=== PATIENT | female | born 1955 | race Caucasian/White ===

== ENCOUNTER → 2022-05-18 12:07 | Outpatient (CLI) | payer MEDICARE, OTHER, SELFPAY ==
--- NOTE | 2022-05-18 | DI.MRI.S_ITS ---
PROCEDURE: MR LUMBAR SPINE WO CON INDICATIONS: RADICULOPATHY, LUMBAR REGION TECHNIQUE: Noncontrast sagittal T1 spin echo and T2 fast echo, sagittal STIR, axial T1 and T2 fast spin echo through the lumbar spine. Axial and oblique coronal T1 spin echo and STIR through the sacrum. In cases with scoliosis, additional coronal T2 fast spin echo may be performed. COMPARISON: None. FINDINGS: Image quality: Excellent. Alignment and Curvature: There is normal bony alignment. Bone Marrow: Marrow is of normal overall signal. No acute vertebral body compression fractures. No sacral fractures. Spinal Cord: Conus medullaris terminates at the L1 level. Visualized cord demonstrates normal signal and size. Paraspinous Soft Tissues: No paravertebral masses. T11-12: Circumferential disc bulge results in [id number]-[id number] central stenosis. No foraminal stenosis. T12-L1: Disc space narrowing noted. No central or foraminal stenosis L1-L2: Disc space narrowing with circumferential disc bulge present. No central or foraminal stenosis L2-L3: Disc space narrowing with circumferential disc bulge results in mild central stenosis. Mild bilateral foraminal stenosis L3-L4: Disc height is maintained. Ligamentum flavum laxity combines with mild disc bulge to result in mild central stenosis. Moderate left and no right foraminal stenosis. L4-L5: Disc space is maintained. Hypertrophic facet joints results in mild central stenosis. No foraminal stenosis L5-S1: Disc height loss present with circumferential disc bulge and hypertrophic facet joints. Left lateral recess effacement present. No central stenosis. Moderate left and mild right foraminal stenosis IMPRESSION: 1. Multilevel degenerative disc disease and arthropathy results in varying degrees of central and predominantly foraminal stenosis including moderate left foraminal stenosis at L3-4 and L5-S1 Approved by: Faraz Rebolledo M.D. on 05/18/2022 at 15:13
== END ==
PROVIDERS: PCP Physician Assistant; Referring Provider Physical Medicine & Rehabilitation Pain Medicine; Visit Provider Physical Medicine & Rehabilitation Pain Medicine
DX: M51.16 Intervertebral disc disorders with radiculopathy, lumbar region (principal); M51.17 Intervertebral disc disorders with radiculopathy, lumbosacral region; M47.26 Other spondylosis with radiculopathy, lumbar region; M47.27 Other spondylosis with radiculopathy, lumbosacral region; M48.061 Spinal stenosis, lumbar region without neurogenic claudication; M48.07 Spinal stenosis, lumbosacral region
CPT/HCPCS: 72148

== ENCOUNTER → 2022-11-13 09:42 | Outpatient (CLI) | payer MEDICARE, OTHER, SELFPAY ==
--- NOTE | 2022-11-13 09:49 | DI.CT.S_ITS ---
PROCEDURE: CT LUMBAR SPINE WO CON INDICATIONS: SPINAL STENOSIS, LUMBAR REGION TECHNIQUE: Noncontrast 3 mm thick sections acquired from the T12 level to the sacrum. Sagittal and coronal reformats were constructed. For radiation dose reduction, the following was used: automated exposure control. COMPARISON: [facility], MR, MR LUMBAR SPINE WO CON, 05/18/2022, 12:22. FINDINGS: Image quality: Excellent. Bones: Trace retrolisthesis of L1 on L2. 4 mm retrolisthesis of L2 on L3.. No acute vertebral body compression fractures. No suspicious lytic or blastic bony lesions. No pars defects. T12-L1: No canal stenosis or foraminal stenosis. L1-L2: Mild disc bulge. No canal stenosis. Mild bilateral foraminal stenosis. L2-L3: Disc bulge. Mild canal stenosis. Mild bilateral foraminal stenosis. L3-L4: Disc bulge. Mild canal stenosis. Mild right foraminal stenosis. Tomu-[id number] left foraminal stenosis. L4-L5: Bilateral facet hypertrophy, right greater than left. Disc bulge. Mild canal stenosis. Focal mild right posterior lateral disc protrusion below the exiting right L4 nerve root may impinge on the right L5 nerve root in the right lateral recess. L5-S1: Posterior disc osteophyte complex. Bilateral facet hypertrophy. No canal stenosis. Mild right and moderate left foraminal stenosis Soft tissues: No retroperitoneal masses or hematomas. Visualized aorta is normal in caliber. IMPRESSION: 1. Lower lumbar facet arthropathy. 2. Mild multilevel canal stenosis, involving L2-L3, L3-L4, and L4-L5. 3. A focal right posterior lateral disc protrusion at L4-L5 may impinge on the right L5 nerve root in the right lateral recess. 4. Multilevel foraminal narrowing as described above. Dictated by: Boo Mathis M.D. on 11/13/2022 at 11:52 Approved by: Boo Mathis M.D. on 11/13/2022 at 12:07
[2022-11-13 10:32] LABS: Add Manual Diff / Slide Review NO; Basophils Absolute Auto 0 /uL (0-100); Basophils Percent Auto 0.5 % (0-2); Eosinophils Absolute Auto 100 /uL (0-450); Eosinophils Percent Auto 1.2 % (2-4); Hematocrit 43.8 % (36-46); Hemoglobin 14.6 g/dL (12.0-16.0); Lymphocytes Absolute Auto 1600 /uL (1100-4500); Lymphocytes Percent Auto 25.3 % (25-40); Mean Corpuscular HGB Conc 33.3 % (30-36); Mean Corpuscular Hemoglobin 32.6 PG (26-34); Mean Corpuscular Volume 98.1 fL (80-100); Monocytes Absolute Auto 500 /uL (0-900); Monocytes Percent Auto 7.2 % (3-14); Neutrophils Absolute Auto 4100 /uL (1500-7000); Neutrophils Percent Auto 65.8 % (50-75); Platelet Count 296 X10^3/uL (150-400); Red Blood Cell Count 4.47 X10^6/uL (4.0-5.2); Red Cell Distribution Width 12.5 % (11.6-14.8); White Blood Cell Count 6.3 X10^3/uL (4.5-11.0)
[2022-11-13 10:45] LABS: BUN Creatinine Ratio 26.8 (6-22); Blood Urea Nitrogen 15 mg/dL (7-17); Calcium 9.2 mg/dL (8.4-10.2); Carbon Dioxide 23 mmol/L (22-32); Chloride 104 mmol/L (98-107); Estimated Glomerular Filt Rate > 60 mL/min (>60); Glucose 153 mg/dL (80-110); HEMOLYSIS 16 (0-50); Sodium 138 mmol/L (137-145)
== END ==
PROVIDERS: PCP Physician Assistant; Referring Provider Orthopaedic Surgery Orthopaedic Surgery of the Spine; Visit Provider Orthopaedic Surgery Orthopaedic Surgery of the Spine
DX: Z01.818 Encounter for other preprocedural examination (principal); M47.816 Spondylosis without myelopathy or radiculopathy, lumbar region; Z01.812 Encounter for preprocedural laboratory examination; M48.062 Spinal stenosis, lumbar region with neurogenic claudication; M51.26 Other intervertebral disc displacement, lumbar region; R73.9 Hyperglycemia, unspecified
CPT/HCPCS: 36415; 72131; 80048; 83036; 85025; 93005

== ENCOUNTER 2022-12-24 06:41 | Inpatient (IN) | payer MEDICARE, OTHER, SELFPAY ==
[2022-12-23 08:32] VITALS: BMI 36.0
[2022-12-24] VITALS (14 sets, daily range): BP systolic 118–169; BP diastolic 54–80; PULSE 65–85; RESP 8–19; TEMP 36–36.9; O2SAT 89–100; BMI 36.0
--- NOTE | 2022-12-24 | DI.RAD.S_ITS ---
PROCEDURE: XR LUMBAR SPINE 2-3V INDICATIONS: L4-5 L5-S1 TLIF TECHNIQUE: 2 views of the lumbar spine were acquired. COMPARISON: None. FINDINGS: Fluoroscopic guidance utilized for surgical fusion of the L4 through S1 vertebral bodies. IMPRESSION: Fluoroscopic guidance. Dictated by: Walter Valerio M.D. on 12/24/2022 at 12:31 Approved by: Walter Valerio M.D. on 12/24/2022 at 12:31
--- NOTE | 2022-12-24 07:42 | PM.PREOP ---
Pre-operative Note COVID-19 COVID-19 status: Negative Result date/Date tested (Pos, Neg/Pending): 12/23/22 Criteria for continued procedure: Expected advancement of disease process, Possibility delay results in more complex future surgery or treatment, Increased loss of function, Continuing or worsening of significant or severe pain, Deterioration of the patient's condition or overall health and Delay expected to result in less-positive ultimate med/surg outcome Interval Note History & Physical reviewed/Exam performed by Physician: Yes Changes to H&P: No
[2022-12-24] MEDS: CEFAZOLIN 2 GM/100 ML PREMIX 100 ML IV ×3 (07:50→23:34)
[2022-12-24 07:59] LABS: COVID19 -Nasal RAPID Negative (Negative)
--- NOTE | 2022-12-24 08:19 | SUR.OPER ---
Prone on spine table, head in foam head support, padded chest and pelvic supports, gel pad at knees, lower legs supported by pillows; nipples, genitalia and toes free of pressure, arms secured on foam padded arm boards at <90 degrees abduction. Tape over blanket at thigh secured to table.
[2022-12-24] MEDS: BUPIVACAINE LIPOSOME 266 MG/20 ML VIAL INJ (08:33)
[2022-12-24] MEDS: BUPIVACAINE 0.25% (PF) 30 ML, EPINEPHrine 0.3 MG INJ ×2 (08:35→08:39)
[2022-12-24] MEDS: LACTATED RINGERS 1,000 ML 42 ML IV ×2 (08:59→09:52)
--- NOTE | 2022-12-24 11:17 | PM.OP.1 ---
Operative Date/Time/Diagnoses Date of procedure: 12/24/22 Time of procedure: 07:40 Pre-op diagnosis: 1. L4-5, L5-S1 spinal stenosis 2. Lumbar spondylosis with radiculopathy Post-op diagnosis: same Procedure & Clinicians Procedure: 1. L4-5, L5-S1 Postero-lateral and posterior interbody fusion 2. L4-5, L5-S1 interbody cage placement. 3. L4-5, L5-S1 decompressive laminectomy with bilateral facetecomies 4. L4-5, L5-S1 Posterior segmental instrumentation 5. [place] of bone marrow from iliac crest 6. Utilization of microsurgical technique and operating microscope 7. Utilization of robotic assisted navigation Same procedure as scheduled: Yes Indications: Patient has been having chronic back pain and worsening lumbar radiculopathy and symptoms of neurogenic claudication. Patient failed multiple conservative management with worsening pain weakness and numbness in her lower extremity. Patient has been having difficulty performing activity of daily living. After discussing risks benefits of treatment options, patient elected proceed with surgery. Surgeon: Joshua Alva Hardwood Floor Installation Helper: Shanna Holt Click Yes if Unassisted: No Anesthesia Type: General Operative Notes Closure Type: primary Specimen(s): none sent Prosthetic devices, grafts, tissues, transplants, or devices: Globus CREO MIS screws. Rise cages Applied: catheter Estimated Blood Loss (mL): 100 Blood products transfused: none Procedure in detail: Patient was seen in the preoperative area. Risks and benefits of the surgery was discussed with the patient. Informed consent was obtained from the patient and placed in the chart. Surgical site was marked. Patient was taken to the operative room. General anesthesia was administered. Prophylactic antibiotic was given to the patient less than 30 min before the incision was made. Patient was placed into a prone position on the [place] table. Patient's back was then prepped and draped in the sterile fashion. Time-out was performed at this time. After patient was prepped and draped, patient's PSIS was palpated and marked bilaterally. Small 1 cm incision was made over the PSIS for placement of the reference probes. Two trocar was placed into the PSIS 1 on each side. The reference probe was attached to the trocar of the reference apparatus. At this time the C-arm imaging was used to confirm AP and lateral of L4-L5, L5-S1 vertebrae and merged the C-arm imaging using the NextMedium robotic navigation system with the CT of the lumbar spine. After successful merging was completed and confirmed, skin marker was used to [place] out the skin incision using the NextMedium robotic arm. Bilateral incision was made at this time. Pre templated trajectory was used and guided using the NextMedium robotic navigation system for bilateral L4, L5, S1 pedicle screw placement. This was done by using the robotic arm to guide the high-speed bur to make a cortical entry point. Next a drill was placed also using the robotic arm and guided using the navigation system drilling partially through bilateral L4, L5 and S1 pedicles. Next L4, L5, S1 pedicle screws it was pre templated and measured was placed onto the power party bus driver and inserted into the pedicles bilaterally. After all 6 screws were placed C-arm imaging was taken of both AP and lateral to confirm the placement. Excellent placement of the screws were confirmed and a matched precisely with the pre planned screw placement using the navigation system. MARs retractor was inserted using [employer] Technologiesivation guidence. Globus MARS retractors was placed inside the incision and docked onto the L4 and L5 lamina. Using microsurgical technique and operating microscope, a L4, L5 laminectomy and L4-5, L5-S1 facetectomy was performed using a Kerrison rongeur. Patient was found have severe lateral recess and neural foramen stenosis which was fully decompressed after the laminectomy facetectomy. More than 75% of the facets were removed during the process of decompression rendering L4-5, L5-S1 level grossly unstable and required a fusion procedure at the same time. The disc space at L4-5, L5-S1 was identified, and a total diskectomy was performed at L4-5, L5-S1 level. The endplates were decorticated using a rasp and shaver. The total diskectomy and decortication was performed at L4-5, L5-S1 level in order to to accomplish a L4-5, L5-S1 fusion. The local bone from the laminectomy and facetectomy was saved for local bone grafting. After the total diskectomy and decortication was completed, Trifecta bone graft material was combined with local bone that was harvested earlier. At this time, a separate skin is incision was made over the iliac crest. A Jamshidi needle was inserted into the iliac crest through a separate skin incision. 5 cc of bone marrow aspiration was obtained through the separate skin incision using a Jamshidi needle from the iliac crest. The bone marrow aspiration was combined with local bone and the Trifecta bone grafting material. The bone grafting material was placed into the L4-5, L5-S1 interbody space along with a expandable cage. The cage was expanded to its maximum height using the torque limiting screwdriver. The disc preparation as well as the cage insertion were also performed under navigation guidance. After the cage was placed, AP and lateral C-arm imaging was taken to confirm placement of the cage and excellent position was confirmed. Globus MARS retractor was inserted and docked onto the L4-5, L5-S1 posterolateral gutter on the right side. Using the power drill, posterior-lateral decortication was performed at L4-5, L5-S1 level until bleeding cortical bone was identified. The remaining bone grafting material was placed into the L4-5, L5-S1 posterior lateral gutter he order to accomplish posterolateral fusion at the L4-5, L5-S1 level. At this time the tulips were attached to the L4, L5, S1 pedicle screw shanks. After measuring the length of the rods, they were inserted into the tulips of the pedicle screws and locked in place using locking caps and torque limiting screwdriver bilaterally. Total 6 caps and 2 titanium rods was used in order to complete the posterior instrumentation construct. After all the hardware was placed, and confirmed with AP and lateral C-arm imaging, the wound was then irrigated with sterile normal saline and packed with Ray-Todd gauze for 3 min to accomplish hemostasis. After the gauze was removed the deep fascia was closed with #1 Vicryl suture. The subcutaneous layer was closed with 2-0 Vicryl. The skin was closed with skin yuri. Patient tolerated the procedure well. There were no complications. Neuro monitoring system was used to monitor patient's neurologic status throughout entire procedure. There was no disturbance of the neural monitoring signals throughout the case. The Operation could not have been safely performed without compromising the technical result or length of the procedure, without the assistance of a skilled surgical elastic knitter. The surgical elastic knitter was medically necessary for proper positioning, retraction and manipulation of instruments, proper exposure, surgical preparation, and manipulation of tissue. Complications: none Post-operative Condition: stable Disposition: PACU Plan for aftercare: Admit to inpatient hospital
[2022-12-24] MEDS: fentaNYL 100 MCG/2 ML INJ IV (11:20)
[2022-12-24] MEDS: OXYCODONE/ACETAMINOPHEN 5/325 TABLET 1 TAB PO (11:36)
[2022-12-24] MEDS: ONDANSETRON 4 MG/2 ML INJ IV (11:40)
[2022-12-24] MEDS: LACTATED RINGERS 1,000 ML 125 ML IV ×2 (12:45→23:15)
[2022-12-24] MEDS: HYDROMORPHONE 0.5 MG INJ IV ×2 (12:52→20:11)
[2022-12-24] MEDS: OXYCODONE IR 10 MG TABLET PO ×3 (14:25→23:30)
--- NOTE | 2022-12-24 14:50 | PC.NURSE ---
Patient admitted to floor around 1215 from pacu. She had a TLIF and the dressing to her back is cdi. Her skin is mostly clear. Patient has a bruise to her r. back thigh and a scratch to her toes. She has LR at 125cc infusing. Given dilaudid 0.5mg and this was effective for pain for around 2 hours. She just complained of pain 8/10 and 10mg of po oxycodone given. Will assess pain in an hour.
[2022-12-24] MEDS: INSULIN LISPRO 100 UNIT/ML 3ML VIAL SUBCUT (16:41)
[2022-12-24] MEDS: ATORVASTATIN 20 MG TABLET 40 MG PO (18:05)
[2022-12-24] MEDS: buPROPion XL 150 MG TAB PO (18:05)
[2022-12-24] MEDS: ESCITALOPRAM 10 MG TABLET 20 MG PO (18:06)
[2022-12-24] MEDS: DOCUSATE 100 MG CAPSULE PO (20:16)
[2022-12-24] MEDS: SACUBITRIL VALSARTAN 1 EACH PO (20:16)
[2022-12-24] MEDS: CYCLOBENZAPRINE 10 MG TABLET PO (20:16)
[2022-12-24] MEDS: TRAZODONE 50 MG TABLET 100 MG PO (20:16)
[2022-12-24] MEDS: SENNOSIDES 8.6 MG TABLET 17.2 MG PO (20:16)
[2022-12-24] MEDS: PRAMIPEXOLE 0.25 MG TABLET 0.75 MG PO (20:17)
[2022-12-24] MEDS: INSULIN GLARGINE 100 UNIT/ML 3ML PEN 15 UNIT SUBCUT (21:30)
[2022-12-25] VITALS (8 sets, daily range): BP systolic 113–134; BP diastolic 46–97; PULSE 74–82; RESP 14–18; TEMP 36.3–36.9; O2SAT 91–96
[2022-12-25] MEDS: OXYCODONE IR 10 MG TABLET PO ×3 (02:41→12:04)
[2022-12-25] MEDS: ACETAMINOPHEN 325 MG TABLET 650 MG PO ×3 (04:45→22:31)
[2022-12-25] MEDS: HYDROMORPHONE 0.5 MG INJ IV (04:47)
[2022-12-25] MEDS: PANTOPRAZOLE DR 40 MG TABLET PO (06:31)
[2022-12-25 07:09] LABS: Hematocrit 37.1 % (36-46); Hemoglobin 12.5 g/dL (12.0-16.0)
[2022-12-25] MEDS: INSULIN LISPRO 100 UNIT/ML 3ML VIAL SUBCUT ×2 (08:18→12:06)
[2022-12-25] MEDS: MONTELUKAST 10 MG TABLET PO (08:18)
[2022-12-25] MEDS: DOCUSATE 100 MG CAPSULE PO ×2 (08:19→20:25)
[2022-12-25] MEDS: SACUBITRIL VALSARTAN 1 EACH PO ×2 (08:19→20:25)
[2022-12-25] MEDS: SPIRONOLACTONE 25 MG TABLET 12.5 MG PO (08:19)
[2022-12-25] MEDS: METOPROLOL ER 50 MG TABLET PO (08:20)
[2022-12-25] MEDS: LACTATED RINGERS 1,000 ML 125 ML IV (08:28)
--- NOTE | 2022-12-25 08:55 | PT.IIE ---
Current Diagnoses Spondylolisthesis, lumbar region (12/24/22) Spinal stenosis, lumbar region with neurogenic claudication (12/24/22) Surgery Performed Operation Date: 12/24/22 07:45 Actual Procedures p L4-5, L5-S1 TLIF w. posterior instrumentation -Robot - Joshua Alva MD Surgical History (Last Updated 12/17/22 @ 10:22 by Genie Lew, RN) History of bilateral cataract extraction History of cardiac cath History of hysterectomy (~2002) History of total left knee replacement History of total right knee replacement Hx of bariatric surgery (~2005) Hx of hernia repair Hx of shoulder surgery Hx of tonsillectomy S/P epidural steroid injection Medical History (Last Updated 12/23/22 @ 08:33 by Genie Lew, RN) Anxiety Asthma Cardiomyopathy Depression Diabetes Easy bruisability GERD (gastroesophageal reflux disease) HLD (hyperlipidemia) HTN (hypertension) Myocardial infarction (~2018) Spinal stenosis Vertigo Physical Therapy Inpatient Evaluation/Re-Eval M1 PT/OT-IP Prior Functional Status Start: 12/24/22 16:21 Freq: NEEDED Status: Active Protocol: Document 12/24/22 16:22 TH (Rec: 12/24/22 16:40 TH [id number]) Medical Review Prior Functional Status Medical History Reviewed Yes: HTN, [place] x 3 Mobility and Gait Pt ambulates ambulates IND without AD Activities of Daily Living and IADL's IND Prior Functional Level (Other details) IND Social History Household Members spouse Living Arrangements House Number of Floors (Floors) One Floor Number of Stairs To Enter/Railing? 3 steps to front door / rails Home Environment Standard Height Toilet,Walk in Shower Home Equipment Front Wheel Walker,Shower Seat with Backrest Additional Social History Comment recommended raised toilet seat with armrests M2 PT-IP Current Condition Start: 12/24/22 16:21 Freq: NEEDED Status: Active Protocol: Document 12/24/22 16:22 TH (Rec: 12/24/22 16:40 TH [id number]) Physical Therapy Current Condition Current Condition Evaluation Date 12/24/22 M3 PT-IP Subjective Start: 12/24/22 16:21 Freq: NEEDED Status: Active Protocol: Document 12/24/22 16:22 TH (Rec: 12/24/22 16:40 TH [id number]) Subjective Physical Therapy Visit Type Type Initial Evaluation Visit Start Time 14:50 Visit Stop Time 15:15 Total Visit Minutes 25 Notes Pt is bed with head elevated. Cleared by nursing to work with PT. Instructed pt in spinal preacutions / handout provided. Number of FUNERAL ASSISTANT Visits 0 Physical Therapy Visit Comments Patient Comments Pt agreeable to Rx Therapy Pain Assessment Pain When Pain Assessed At Rest Pain Present Pain Present Pain Reported Location Back Intensity 6 Description Aching Pain Management Techniques Timing of Activity with Medications M4 PT-IP Mobility and Gait Start: 12/24/22 16:21 Freq: NEEDED Status: Active Protocol: Document 12/24/22 16:22 TH (Rec: 12/24/22 16:40 TH [id number]) PT-Bed Mobility Assessment Rolling Level of Assist Moderate Assistance Supine to Sit Supine to Sit Moderate Assistance Scooting Scooting Up and Down in Bed Minimal Assistance PT-Transfer Assessment Sit to and From Stand Sit to and from Stand Contact Guard Assistance Equipment Transfer Assistive Device Front Wheeled Walker Comments Mobility Comments Pt ambulated 4 feet from bed to chair Gait Assessment Gait Gait Assistance Required: Standby Assistance Assistive Devices Assistive Device Front Wheeled Walker Factors Limiting Gait Function Factors Limiting Gait Function Pain Stair Climbing Assessment Comments Stair Climbing Comments Unable PT-Balance Assessment Sitting Balance and Reactions Static Sitting Balance Ability Good Dynamic Sitting Balance Ability Good Standing Balance and Reactions Static Standing Balance Ability Good Dynamic Standing Balance Ability Good M5 PT-IP Objective Assessments Start: 12/24/22 16:21 Freq: NEEDED Status: Active Protocol: Document 12/24/22 16:22 TH (Rec: 12/24/22 16:40 TH [id number]) Orientation Orientation/Cognition Level of Alertness Alert Orientation Name,Year,Situation Gross Range of Motion Upper Extremity ROM Assessment Within Functional Limits Lower Extremity ROM Assessment Within Functional Limits Strength Upper Extremity Strength Assessment Within Functional Limits Lower Extremity Strength Assessment Within Functional Limits Coordination Assessment Gross Coordination Gross Coordination WNL M6 PT-IP Treatment Start: 12/24/22 16:21 Freq: NEEDED Status: Active Protocol: Document 12/24/22 16:22 TH (Rec: 12/24/22 16:40 TH [id number]) Physical Therapy Treatment Education Education Provided Precautions M7 PT-IP Assessment and Plan Start: 12/24/22 16:21 Freq: NEEDED Status: Active Protocol: Document 12/24/22 16:22 TH (Rec: 12/24/22 16:40 TH [id number]) PT Summary Assessment and Plan Potential Rehabilitation Potential Excellent Status of Condition at Evaluation Stable Summary Impairments Pain,Activity Tolerance Assessment Summary Pt presents with post op pain and decreased endurance. Pt will benefit from further PT to improve functional mobility prior to dc. Pt will have her at home to assist her. Plan for dc home with assist. Recommend raised toilet seat. Goals Bed Mobility Goal Independent Transfer Goal Standby Assistance Gait Goal Standby Assistance,Front Wheel Walker Gait Distance 100+ feet Days to Meet Goals 5 Frequency of Treatment Frequency Of Treatment Twice a Day Treatment Plan Physical Therapy Treatment Plan Bed Mobility Training,Transfer Training,Gait Training, Therapeutic Exercise,Balance Retraining,Post Op Education, Discharge Planning Recommendations To Nursing Amount of Assist Needed 1 Person Assist Discharge Recommendations PT Discharge Recommendations Home with Assistance Other Discharge Recommendations raised toilet seat Transportation Needs at Discharge Private Vehicle
--- NOTE | 2022-12-25 09:55 | PT.IPTN ---
Current Diagnoses Spondylolisthesis, lumbar region (12/24/22) Spinal stenosis, lumbar region with neurogenic claudication (12/24/22) Surgery Performed Operation Date: 12/24/22 07:45 Actual Procedures p L4-5, L5-S1 TLIF w. posterior instrumentation -Robot - Joshua Alva MD Physical Therapy Treatment Note M2 PT-IP Current Condition Start: 12/24/22 16:21 Freq: NEEDED Status: Active Protocol: Document 12/24/22 16:22 TH (Rec: 12/24/22 16:40 TH [id number]) Physical Therapy Current Condition Current Condition Evaluation Date 12/24/22 M3 PT-IP Subjective Start: 12/24/22 16:21 Freq: NEEDED Status: Active Protocol: Document 12/25/22 10:43 TS (Rec: 12/25/22 10:57 TS [id number]) Subjective Physical Therapy Visit Type Type Treatment Note Visit Start Time 09:55 Visit Stop Time 10:40 Total Visit Minutes 45 Notes Spouse and PA in room discussing care for at home. Physical Therapy Visit Comments Patient Comments Pt found resting in bed, reports pain 7/10, agreeable to PT session. Therapy Pain Assessment Pain When Pain Assessed At Rest Pain Present Pain Present Pain Reported Location Back Intensity 7 Pain Management Techniques Timing of Activity with Medications M4 PT-IP Mobility and Gait Start: 12/24/22 16:21 Freq: NEEDED Status: Active Protocol: Document 12/25/22 10:43 TS (Rec: 12/25/22 10:57 TS [id number]) PT-Bed Mobility Assessment Rolling Type of Rolling Log Rolling Level of Assist Contact Guard Assistance Supine to Sit Supine to Sit Moderate Assistance Scooting Scooting to Edge of Bed Standby Assistance PT-Transfer Assessment Sit to and From Stand Sit to and from Stand Standby Assistance Equipment Transfer Assistive Device Front Wheeled Walker Comments Mobility Comments Pt recalled 3/3 precautions. Logroll to right, cues provided for sequencing. Supine to sit ModA for uprghting trunk. Sit to stand SBA with cues for BUE support. Ambulated around room ~12' required rest break due to dizziness, BP unremarkable. Sit to stand x1 SBA, ambulated to door ~2', became fatigued and required to sit down. Rn in for bandage change on surgical area. Pt stand step pivot trasnfer to chair SBA, required cues for BUE support on arms of chair. Pt was left in room with spouse, call light nearby, Rn to take out catheter. Gait Assessment Gait Gait Assistance Required: Standby Assistance Distance (Feet) 25 Assistive Devices Assistive Device Front Wheeled Walker Factors Limiting Gait Function Factors Limiting Gait Function Pain Comments Gait Comments See mobility comments. Stair Climbing Assessment Comments Stair Climbing Comments Unable PT-Balance Assessment Sitting Balance and Reactions Static Sitting Balance Ability Good Dynamic Sitting Balance Ability Good Standing Balance and Reactions Static Standing Balance Ability Good Dynamic Standing Balance Ability Fair M5 PT-IP Objective Assessments Start: 12/24/22 16:21 Freq: NEEDED Status: Active Protocol: Document 12/24/22 16:22 TH (Rec: 12/24/22 16:40 TH [id number]) Orientation Orientation/Cognition Level of Alertness Alert Orientation Name,Year,Situation Gross Range of Motion Upper Extremity ROM Assessment Within Functional Limits Lower Extremity ROM Assessment Within Functional Limits Strength Upper Extremity Strength Assessment Within Functional Limits Lower Extremity Strength Assessment Within Functional Limits Coordination Assessment Gross Coordination Gross Coordination WNL M6 PT-IP Treatment Start: 12/24/22 16:21 Freq: NEEDED Status: Active Protocol: Document 12/25/22 10:43 TS (Rec: 12/25/22 10:57 TS [id number]) Physical Therapy Treatment Education Education Provided Precautions Other Treatments Other Treatment Performed Pt recalled 3/3 precautions. M7 PT-IP Assessment and Plan Start: 12/24/22 16:21 Freq: NEEDED Status: Active Protocol: Document 12/25/22 10:43 TS (Rec: 12/25/22 10:57 TS [id number]) PT Summary Assessment and Plan Potential Rehabilitation Potential Excellent Status of Condition at Evaluation Stable Summary Impairments Pain,Activity Tolerance Assessment Summary Pt recalled 3/3 spinal precautions at start of session. Pt performed logroll to right SBA, required ModA to come sitting upright. She progressed her ambulation distance to 25' in room, pt became dizzy and fatigued, could not progress further, BP unremarkable. PT recommends home with assist from spouse at this time. She has 3 steps into home and will trial if pt 's activity tolerance improves . Goals Bed Mobility Goal Independent Transfer Goal Standby Assistance Gait Goal Standby Assistance,Front Wheel Walker Gait Distance 100+ feet Days to Meet Goals 5 Frequency of Treatment Frequency Of Treatment Twice a Day Treatment Plan Physical Therapy Treatment Plan Bed Mobility Training,Transfer Training,Gait Training, Therapeutic Exercise,Balance Retraining,Post Op Education, Discharge Planning Recommendations To Nursing Amount of Assist Needed 1 Person Assist Discharge Recommendations PT Discharge Recommendations Home with Assistance Other Discharge Recommendations raised toilet seat Transportation Needs at Discharge Private Vehicle
--- NOTE | 2022-12-25 10:51 | PM.PNPO.1 ---
Subjective Subjective Date Patient Seen: 12/25/22 Time Patient Seen: 10:30 Interval history: Patient is awake lying in bed this morning. Her is at bedside. She notes that she has had some significant pain and needed extra as needed medication to get it to a tolerable level. Patient and are concerned that they live an hour and a half away and this is an obstacle for access to care and pharmacy. We discussed narcotic pain medication prescription in detail including number of tablets patient will receive 1 leaving the hospital, how long this should last her, and how to request refills through our office. Exam Vital Signs (past 8 hours): - 12/25/22 03:18 12/25/22 04:44 12/25/22 08:20 Temperature 97.8 F Pulse Rate 79 79 79 Respiratory Rate 14 18 Blood Pressure 125/56 L 134/59 L 113/46 L Pulse Oximetry 95 Oxygen Flow Rate 12/25/22 08:00 Temperature 97.7 F Pulse Rate 82 Respiratory Rate 17 Blood Pressure 113/46 L Pulse Oximetry 94 Oxygen Flow Rate 2 Oxygen Delivery Method Nasal Cannula Oxygen Flow Rate 2 Narrative Exam Narrative: Pleasant 67-year-old female. Awake, alert, and oriented. Lying comfortably in bed. Intraoperative dressing saturated with blood, changed shortly after exam. Strength and sensation intact in bilateral lower extremities. Bilateral calves soft, compressible, nontender with no palpable cords or masses. SCDs intact. Objective Labs 12/25/22 06:25 Labs: Laboratory Results - last 24 hr 12/25/22 06:25 Hgb 12.5 Hct 37.1 PFSH Medical History Anxiety Asthma Cardiomyopathy Depression Diabetes Easy bruisability GERD (gastroesophageal reflux disease) HLD (hyperlipidemia) HTN (hypertension) Myocardial infarction (~2018) Spinal stenosis Vertigo Surgical History History of bilateral cataract extraction History of cardiac cath History of hysterectomy (~2002) History of total left knee replacement History of total right knee replacement Hx of bariatric surgery (~2005) Hx of hernia repair Hx of shoulder surgery Hx of tonsillectomy S/P epidural steroid injection Social History household members: spouse Smoking Status: Never smoker alcohol intake: current Assessment & Plan Post-op Postoperative Procedures: Procedures Operation Date: 12/24/22 07:45 Actual Procedure Side Surgeon p L4-5, L5-S1 TLIF w. posterior instrumentation -Robot Joshua Alva MD Postoperative day: 1 Postoperative status: doing well Postoperative status narrative: Patient is progressing as expected after L4-S1 TLIF. Postoperative plan narrative: Plan to continue with physical therapy today. If pain is managed, patient is able to ambulate safely, and is cleared by Physical therapy, patient may discharge to home today. She will have full-time assistance by her . Postoperative medications were sent to pharmacy today. Quality VTE Deep Vein Thrombosis/Pulmonary Embolism Present on Admission: No
--- NOTE | 2022-12-25 11:10 | OT.IP.EVAL ---
Current Diagnoses Spondylolisthesis, lumbar region (12/24/22) Spinal stenosis, lumbar region with neurogenic claudication (12/24/22) Surgery Performed Operation Date: 12/24/22 07:45 Actual Procedures p L4-5, L5-S1 TLIF w. posterior instrumentation -Robot - Joshua Alva MD Past Medical History (Last Reviewed 12/25/22 @ 10:56 by Valery Virk PA-C) Anxiety Asthma Cardiomyopathy Depression Diabetes Easy bruisability GERD (gastroesophageal reflux disease) HLD (hyperlipidemia) HTN (hypertension) Myocardial infarction (~2018) Spinal stenosis Vertigo Surgical History (Last Reviewed 12/25/22 @ 10:56 by Valery Virk PA-C) History of bilateral cataract extraction History of cardiac cath History of hysterectomy (~2002) History of total left knee replacement History of total right knee replacement Hx of bariatric surgery (~2005) Hx of hernia repair Hx of shoulder surgery Hx of tonsillectomy S/P epidural steroid injection Occupational Therapy Inpatient Evaluation/Re-Eval M1 PT/OT-IP Prior Functional Status Start: 12/24/22 16:21 Freq: NEEDED Status: Active Protocol: Document 12/25/22 09:22 [facility] (Rec: 12/25/22 12:35 [facility] [id number]) Medical Review Prior Functional Status Medical History Reviewed Yes: HTN, [place] x 3 Mobility and Gait Pt ambulates ambulates IND without AD Activities of Daily Living and IADL's IND with ADl and ADL needs and only able to stand for 10 minutes at a time due to her pain. Prior Functional Level (Other details) pt has a supportive to be able to assist with her needs. Social History Household Members spouse Living Arrangements House Number of Floors (Floors) One Floor Number of Stairs To Enter/Railing? 3 steps to front door / right rail going up Home Environment Standard Height Toilet,Walk in Shower Home Equipment Front Wheel Walker,Shower Seat with Backrest,Long Handled Shoe Horn,Handkerchief Folder,Sock Aid Additional Social History Comment Pt looking to get pt a BSC, shower chair and long handled sponge. M2 OT-IP Current Condition Start: 12/25/22 12:13 Freq: Status: Active Protocol: Document 12/25/22 09:22 [facility] (Rec: 12/25/22 12:35 [facility] [id number]) Occupational Therapy Current Condition Current Condition Evaluation Date 12/25/22 Treatment Diagnosis S/p L4-5, L5-S1 Diagnosis Onset Date 12/24/22 Post Operative Precautions Lumbar Precautions Log Roll,No Twisting,Limit Bending,Lifting Restriction of 10 lbs,Gait Belt above Incisional Area M3 OT- IP Subjective and Pain Start: 12/25/22 12:13 Freq: Status: Active Protocol: Document 12/25/22 09:22 [facility] (Rec: 12/25/22 12:35 [facility] [id number]) OT- Subjective Occupational Therapy Visit Type Type Initial Evaluation Visit Start Time : Visit Stop Time 11:10 Total Visit Minutes 45 Occupational Therapy Visit Comments Patient Comments Pt having pain and not wanting to get up at this time. Pt's in the room. Patient/Caregiver Goals To go home OT Pain Assessment Pain When Pain Assessed At Rest Pain Present Pain Present Pain Reported Location Back Intensity 6 Scale Used Numeric (0 - 10) M4 OT- IP ADL's Start: 12/25/22 12:13 Freq: Status: Active Protocol: Document 12/25/22 09:22 [facility] (Rec: 12/25/22 12:35 [facility] [id number]) OT UNI-Lpll-Rokzlyl Comments OT Self-Feeding Comments Spoke of importance to sit upright while eating. OT ADL-Grooming Comments OT Grooming Comments Pt able to wash her hands with wash cloth. OT ADL-Oral Care Comments Oral Care Comments Educated to pt in order to best follow her back precaution best to spit into a cup or hinge at her hips. OT ADL-Dressing Comments OT Dressing Comments Pt has LB dressing equipment at home and her is able to assist as needed. OT ADL-Toileting Comments OT Toileting Comments Educated on use of wet-ones, brief at night so not having to hurry to the bathroom and to get a BSC. Pt states having to get up 1-2 times at night. Pt plans on sleeping in a seperate room then her as the bed will be at a more appropriate height for the pt. OT ADL-Bathing Comments OT Bathing Comments Pt's states will get a shower chair. Spoke on covering the dressing from getting wet in the shower and that nursing will go over more details later. M5 OT- IP IADL's Start: 12/25/22 12:13 Freq: Status: Active Protocol: Document 12/25/22 09:22 [facility] (Rec: 12/25/22 12:35 [facility] [id number]) OT-Instrumental Activities of Daily Living Home Safety Awareness Awareness of Need for Assistance at Home Good Awareness Ability to Problem Solve Emergency Able to Problem Solve Situations Home Safety Comments Pt a little groggy from pain medications and at this time and will be beneficial for her to provide supervision and assist as needed. M6 OT- IP Functional Cognition Start: 12/25/22 12:13 Freq: Status: Active Protocol: Document 12/25/22 09:22 [facility] (Rec: 12/25/22 12:35 [facility] [id number]) Cognitive Factors Limiting Selfcare Function Cognitive Ability Level of Alertness Drowsy Patient Orientation Name,Place,Situation Attention Span Ability Capable of Focused Attention, Unable to Sustain Attention Ability to Follow Commands Able to Follow One Step Commands with Increased Time, Able to Follow One Step Commands with Repetition Safety Awareness Decreased Recall of Precautions Cognitive Comments Cognitive Assessment Comments Pt awake for part of the session and falling asleep when trying to educate her on pt's needs. OT- Vision and Hearing OT- Hearing Assessment OT- Hearing Assessment WFL M7 OT- IP Mobility and Balance Start: 12/25/22 12:13 Freq: Status: Active Protocol: Document 12/25/22 09:22 [facility] (Rec: 12/25/22 12:35 [facility] [id number]) OT-Transfer Assessment Comments Mobility Comments Please see TORCH BURNER notes for mobility as pt not wanting to get up as just got up. Per pt's states more concerned about her bed mobility and pain control. M9 OT- IP Assessment and Plan Start: 12/25/22 12:13 Freq: Status: Active Protocol: Document 12/25/22 09:22 [facility] (Rec: 12/25/22 12:35 [facility] [id number]) OT Summary Assessment and Plan Potential Rehabilitation Potential Good Analytic Complexity at Evaluation Low Summary OT Impairments Pain,Balance,Functional Mobility,Grooming,Dressing, Toileting,Bathing,Toilet Transfers,Shower Transfers, Activity Tolerance Progress Towards Goals Slow Progress due to Pain,Slow Progress due to Medical Issues,Slow Progress due to Activity Tolerance Assessment Summary Pt very drowsy and just getting up with TORCH BURNER. Able to go through log rolling with pt 's to emphasize that her FWW can be held next to the bed so able to follow her log rolling and back precautions more appropriately . Able to go through OT equipment needs for the pt in addition of how pt's able to assist. Pending progress, pain control, steps , most likely home with her at this time, however may be a possibility that pt may need SNF pending progress. Goals Grooming Goal Independent Dressing Goal Minimal Assistance Toileting Goal Independent Bathing Goal Minimal Assistance Toilet Transfer Goal Independent Shower Transfer Goal Independent Days to Meet Goals 10 Frequency of Treatment Frequency Of Treatment Once a Day Treatment Plan OT Treatment Plan ADL Training,Functional Cognition Training,Functional Mobility,Patient/Family Education,Discharge Planning Other Treatment Recommendations and Next Stand at sink for ADl needs. Treatment Focus Discharge Recommendations OT Discharge Recommendations Home vs SNF Home Equipment Needs BSC, shower chair, long handled sponge Transportation Needs at Discharge Private Vehicle,Wheelchair/ Cabulance
--- NOTE | 2022-12-25 12:25 | CM.DANOTE ---
DCP: Case received, EMR reviewed and met with patient. Spouse, Devaughn, was at bedside. Introduced self and role. Was able to obtain information regarding patient's baseline activity status at home prior to her surgery. DCP assessment completed with information currently available. Patient is a 67 year old female who admitted yesterday morning to the care of the orthopedic team. PCP: Dr. Ny. Payer: confirmed: Medicare/[employer]. Patient came to the hospital via private vehicle for a surgical procedure. Patient had L4-5, L5-S1 postero-lateral and posterior interbody fusion. Patient has history of spinal stenosis. Met with patient in her room. She was sitting up in her chair, spouse in the room. She is alert and oriented. Stated, still having significant pain, she did mobilize with P.T. Confirmed that she resides in [facility] with spouse. She is independent at her baseline. Spouse indicated that they have been in their home for about 8 years, they had it built handicap friendly. P: DCP to continue to follow. Patient should be able to go home when stable, with supportive spouse. Whitney Kaiser RN/Workforce Development Assistant Discharge Planning/Care Management CM Discharge Assessment Start: 12/25/22 12:23 Freq: Status: Active Protocol: Document 12/25/22 12:24 (Rec: 12/25/22 12:25 [id number]) Discharge Planning Assessment Assigned Chassis Mechanic Whitney Kaiser RN/Workforce Development Assistant Advance Directives? Yes Advance Directives on File Yes History Provided By Patient,Medical Record Prior Living Arrangements House Household Members spouse Type of transporation used prior to Drives own vehicle admit Willing to Return to Facility? No Independent with ADL's Yes Is patient alert and oriented? Yes Caregiver for Another No Barriers to Discharge No Discharge Plan Home Transportation Arrangement Spouse Referrals Initiated None needed Whiteboard Updated in Patient Room with Yes name and ext. # of Chassis Mechanic Review Status In Process Next Review Type Continued Stay Review Pre-Anesthesia Assessment Start: 12/17/22 10:01 Freq: Status: Active Protocol: Document 12/23/22 08:32 CAB (Rec: 12/17/22 10:37 CAB [id number]) Pre-Anesthesia Assessment Preferred Name Nikole Diagnostic Results BMP/CMP,CBC,EKG Comment Labs/EKG @ [facility] 11/13/22 Primary Care Provider Belinda Aguayo Seen Specialist in Last 12 Months Yes Specialist Seen Associate Merchandise Planner,Orthopedist Primary Language Ghanaian Plastic Mixer Required No Height 5 ft 7 in Weight 230 lb Body Mass Index (BMI) 36.0 Hearing Ability Normal Visual Impairment No Limitations Visual Assist None Dentition Type Teeth, Natural Present,Teeth, Missing Barriers to Learning None Hx Anesthesia Reactions No Hx Family Anesthesia Reaction Yes: Dad, sister - Takes hours & hours for them to wake up Hx Malignant Hyperthermia No Hx Blood Transfusions No Anesthesia Review Requested No Manifest/Order Organizer Print Orders No alcohol intake current alcohol intake frequency 0-2 drinks per day Smoking Status Never smoker Substance Use Type marijuana Comment Edibles only for sleep Pain Present Pain Reported Musculoskeletal Symptoms Abnormal Gait,Back Pain, Difficulty Walking,Radiating Pain into Limb History of Falling (Recent or History of Yes ) Patient is completely paralyzed or No completely immobile Mental Status Oriented to own ability Is patient on oxygen? No Does patient have CHEEMA/SOB No Hx Sleep Apnea No Currently Taking a Beta Anny Yes: Metoprolol Hx Chest Pain Yes: Related to DE's not recently Hx SOB No Hx Syncope or Dizziness Yes: Occasional vertigo Anti-Coagulant Therapy No Has a Associate Merchandise Planner Yes: Last visit 07/09/[address] Hill @ [facility] Cardiac Testing No Hx Pacemaker/ICD No Pacemaker Rep Required? No Cardiac Clearance Received Yes Comment Cardiac records scanned Diet Type At Home Regular,Gluten Free Gastrointestinal Symptoms Reflux Bladder Pattern Frequency,Incontinent,Urgency Urinary Catheter Present No Hx Urinary Self Catheterization No Diabetes Yes HgbA1C 7.0 Date 11/13/22 Patient No Lactating No Hx Drug Resistant Organism No Presence of External or Internal Medical Yes: Bilat eye IOLs, robby knee Devices prosthesis Have you had any close contact with No someone diagnosed with COVID-19? Received a COVID vaccine? Yes Received all doses? Yes Marital Status Lives With spouse Current Living Arrangements House Number of Floors (Floors) One Floor Number of Stairs To Enter/Railing? 4 Support System Spouse Does the Patient Have Assistance After Yes Surgery Patient Discharge Plan Description Return Home Comment Pt advised 2-3 day length of stay per surgeon Feels Safe in Current Environment Yes Been Physically Hurt or Threatened By a No Person in Current Environment Do you have thoughts of harming yourself None or others? Are you currently considering suicide? No Do you have a plan to hurt yourself or No Plan others? Do You Have Any Spiritual Beliefs That No May Affect Your HC Choices? Do You Have Any Cultural Practices That No May Affect Your HC Choices? Comment Scientology Who Can We Speak to About Patient's Care Family, friends Identifying Code for Release of Patient Declines to issue Information Health Care Proxy/Next of Kin Devaughn () Health Care Proxy Emergency Contact Name Devaughn () Emergency Contact Advance Directives? No Power of Rail Car Repairer No PAC Instructions Diabetes instructions,Durable medical equipment,Medications to take/avoid,Nasal antibiotic ,No ETOH/petroleum product on skin DOS,NPO,Post-op transportation,Pre-surgical wash,Sensory aids,Sturdy shoes /comfortable clothes,Do not bring valuables and remove jewelry
--- NOTE | 2022-12-25 15:20 | PT.IPTN ---
Current Diagnoses Spondylolisthesis, lumbar region (12/24/22) Spinal stenosis, lumbar region with neurogenic claudication (12/24/22) Surgery Performed Operation Date: 12/24/22 07:45 Actual Procedures p L4-5, L5-S1 TLIF w. posterior instrumentation -Robot - Joshua Alva MD Physical Therapy Treatment Note M2 PT-IP Current Condition Start: 12/24/22 16:21 Freq: NEEDED Status: Active Protocol: Document 12/24/22 16:22 TH (Rec: 12/24/22 16:40 TH [id number]) Physical Therapy Current Condition Current Condition Evaluation Date 12/24/22 M3 PT-IP Subjective Start: 12/24/22 16:21 Freq: NEEDED Status: Active Protocol: Document 12/25/22 15:27 SW (Rec: 12/25/22 16:07 SW [id number]) Subjective Physical Therapy Visit Type Type Treatment Note Visit Start Time 14:54 Visit Stop Time 15:20 Total Visit Minutes 26 Notes Pt in bed, pleasant and agreeable to PT session. Spouse entered room shortly after arrival. Number of MULTIFOCAL LENS INSPECTOR Visits 2 Physical Therapy Visit Comments Patient Comments Pt resting in bed. Reports her pain is better than before, rating 6/10 and prior 7-8/10. Therapy Pain Assessment Pain When Pain Assessed At Rest Pain Present Pain Present Pain Reported Location Back Intensity 6 Pain Management Techniques Timing of Activity with Medications M4 PT-IP Mobility and Gait Start: 12/24/22 16:21 Freq: NEEDED Status: Active Protocol: Document 12/25/22 15:27 SW (Rec: 12/25/22 16:07 SW [id number]) PT-Bed Mobility Assessment Rolling Type of Rolling Log Rolling Level of Assist Moderate Assistance Supine to Sit Supine to Sit Moderate Assistance Scooting Scooting to Edge of Bed Standby Assistance Scooting Up and Down in Bed Standby Assistance PT-Transfer Assessment Sit to and From Stand Sit to and from Stand Standby Assistance,Moderate Assistance Equipment Transfer Assistive Device Front Wheeled Walker Comments Mobility Comments Patient recalled 1/3 precautions (Lifting/twisting) . Required ModA for supine to sit and from sit to stand.VC required for sequencing to avoid breaking precautions. Gait Assessment Gait Gait Assistance Required: Standby Assistance Distance (Feet) 5 Assistive Devices Assistive Device Front Wheeled Walker Factors Limiting Gait Function Factors Limiting Gait Function Pain Comments Gait Comments See mobility comments. Stair Climbing Assessment Evaluation Level of Assist On Stairs Standby Assistance Devices Stair Climbing Assistive Devices Left Railing,Right Railing Technique/Endurance Stair Climbing Direction Ascend and Descend Stair Climbing Technique Step to Step Number of Steps Climbed 3 Comments Stair Climbing Comments Patient Ascended/descended stairs x3, SBA. M5 PT-IP Objective Assessments Start: 12/24/22 16:21 Freq: NEEDED Status: Active Protocol: Document 12/24/22 16:22 TH (Rec: 12/24/22 16:40 TH [id number]) Orientation Orientation/Cognition Level of Alertness Alert Orientation Name,Year,Situation Gross Range of Motion Upper Extremity ROM Assessment Within Functional Limits Lower Extremity ROM Assessment Within Functional Limits Strength Upper Extremity Strength Assessment Within Functional Limits Lower Extremity Strength Assessment Within Functional Limits Coordination Assessment Gross Coordination Gross Coordination WNL M6 PT-IP Treatment Start: 12/24/22 16:21 Freq: NEEDED Status: Active Protocol: Document 12/25/22 15:27 SW (Rec: 12/25/22 16:07 SW [id number]) Physical Therapy Treatment Education Education Provided Precautions Other Treatments Other Treatment Performed Pt recalled 1/3 precautions ( lifting, twisting). Pt acknowledged she has her precautions available in her packet to review. M7 PT-IP Assessment and Plan Start: 12/24/22 16:21 Freq: NEEDED Status: Active Protocol: Document 12/25/22 15:27 SW (Rec: 12/25/22 16:07 SW [id number]) PT Summary Assessment and Plan Potential Rehabilitation Potential Excellent Status of Condition at Evaluation Stable Summary Impairments Pain,Activity Tolerance Assessment Summary Reviewed bed mobility with patient. She performed log roll to R, required ModA for supine to sit and sit to stand . Successfully ambulated stairs x3. present, supportive, and educated on how to safely assist patient. Pt reports post tx that her pain was decreased to a 4/10. Pt left in bed, call light within reach, all needs met. Goals Bed Mobility Goal Independent Transfer Goal Standby Assistance Gait Goal Standby Assistance,Front Wheel Walker Gait Distance 100+ feet Other Goals Stairs: up/down 3 steps with rail. SBA to IND Days to Meet Goals 5 Frequency of Treatment Frequency Of Treatment Twice a Day Treatment Plan Physical Therapy Treatment Plan Bed Mobility Training,Transfer Training,Gait Training, Therapeutic Exercise,Balance Retraining,Post Op Education, Discharge Planning Recommendations To Nursing Amount of Assist Needed 1 Person Assist Discharge Recommendations PT Discharge Recommendations Home with Assistance Other Discharge Recommendations raised toilet seat Transportation Needs at Discharge Private Vehicle
[2022-12-25] MEDS: OXYCODONE IR 5 MG TABLET PO ×2 (16:32→22:31)
[2022-12-25] MEDS: buPROPion XL 150 MG TAB PO (17:45)
[2022-12-25] MEDS: NF - Empagliflozin (Jardiance) 10 mg Tablet 10 EACH PO (17:46)
[2022-12-25] MEDS: ESCITALOPRAM 10 MG TABLET 20 MG PO (17:46)
[2022-12-25] MEDS: ATORVASTATIN 20 MG TABLET 40 MG PO (17:46)
[2022-12-25] MEDS: SENNOSIDES 8.6 MG TABLET 17.2 MG PO (20:24)
[2022-12-25] MEDS: TRAZODONE 50 MG TABLET 100 MG PO (20:25)
[2022-12-25] MEDS: PRAMIPEXOLE 0.25 MG TABLET 0.75 MG PO (20:25)
[2022-12-25] MEDS: CYCLOBENZAPRINE 10 MG TABLET PO (20:25)
[2022-12-25] MEDS: INSULIN GLARGINE 100 UNIT/ML 3ML PEN 15 UNIT SUBCUT (20:26)
[2022-12-25] MEDS: SODIUM CHLORIDE 0.9% FLUSH 10 ML IV (21:54)
[2022-12-26 03:40] VITALS: BP 111/59; PULSE 78; RESP 17; TEMP 36.1; O2SAT 94
[2022-12-26] MEDS: ACETAMINOPHEN 325 MG TABLET 650 MG PO ×2 (04:58→10:09)
[2022-12-26] MEDS: OXYCODONE IR 5 MG TABLET PO ×3 (04:58→12:10)
[2022-12-26] MEDS: PANTOPRAZOLE DR 40 MG TABLET PO (06:10)
[2022-12-26 08:00] VITALS: BP 117/60; PULSE 78; RESP 17; TEMP 36.3; O2SAT 93
[2022-12-26 09:24] VITALS: BP 117/60; PULSE 78
[2022-12-26] MEDS: MONTELUKAST 10 MG TABLET PO (09:24)
[2022-12-26] MEDS: METOPROLOL ER 50 MG TABLET PO (09:24)
[2022-12-26] MEDS: SPIRONOLACTONE 25 MG TABLET 12.5 MG PO (09:25)
[2022-12-26] MEDS: DOCUSATE 100 MG CAPSULE PO (09:26)
[2022-12-26] MEDS: SACUBITRIL VALSARTAN 1 EACH PO (09:50)
[2022-12-26 11:02] VITALS: BP 92/61; PULSE 75
--- NOTE | 2022-12-26 11:22 | P.DS_ITS ---
History of Present Illness History of Present Illness Date Patient Seen: 12/26/22 Time Patient Seen: 11:22 Chief complaint: Translam Intrbody Fus./Laminotomy -Robot Narrative: Patient is complaining of moderate low back pain, currently well controlled with pain medications. Her is at bedside. No new numbness or tingling. Overall she is feeling well and would like to be discharged home today. Discharge Providers Provider Date of admission: 12/24/22 06:41 Discharge Date: 12/26/22 Primary care physician: Belinda Aguayo PA-C Consults: 12/24/22 12:33 Consult to Occupational Therapy Evaluate & Treat Comment: Physician Instructions: Evaluate and treat Consult to Physical Therapy Evaluate & Treat Comment: Physician Instructions: Evaluate and Treat Discharge provider: Natividad Castillo PA-C Summary Hospital Course Discharge Diagnosis: 1. L4-5, L5-S1 spinal stenosis 2. Lumbar spondylosis with radiculopathy Hospital Course: Operative Date/Time/Diagnoses Date of procedure: 12/24/22 Time of procedure: 07:40 Procedure & Clinicians Procedure: 1. L4-5, L5-S1 Postero-lateral and posterior interbody fusion 2. L4-5, L5-S1 interbody cage placement. 3. L4-5, L5-S1 decompressive laminectomy with bilateral facetecomies 4. L4-5, L5-S1 Posterior segmental instrumentation 5. Jackpot of bone marrow from iliac crest 6. Utilization of microsurgical technique and operating microscope 7. Utilization of robotic assisted navigation Same procedure as scheduled: Yes Indications: Patient has been having chronic back pain and worsening lumbar radiculopathy and symptoms of neurogenic claudication. Patient failed multiple conservative management with worsening pain weakness and numbness in her lower extremity.? Patient has been having difficulty performing activity of daily living.? After discussing risks benefits of treatment options, patient elected proceed with surgery. Surgeon: Joshua Alva Correctional Guard: Shanna Holt Click Yes if Unassisted: No Anesthesia Type: General Operative Notes Closure Type: primary Specimen(s): none sent Prosthetic devices, grafts, tissues, transplants, or devices: Globus CREO MIS screws. Rise cages Applied: catheter Estimated Blood Loss (mL): 100 Blood products transfused: none Status at Discharge Cognitive/behavioral status at discharge: at baseline, oriented Functional status at discharge: uses cane/walker Overall status at discharge: patient is progressing back to baseline Exam Vital Signs (past 8 hours): - 12/26/22 03:40 12/26/22 09:24 12/26/22 08:00 Temperature 97.0 F L 97.3 F L Pulse Rate 78 78 78 Respiratory Rate 17 17 Blood Pressure 111/59 L 117/60 117/60 Pulse Oximetry 94 93 Oxygen Flow Rate 0 0 12/26/22 11:02 Temperature Pulse Rate 75 Respiratory Rate Blood Pressure 92/61 Pulse Oximetry Oxygen Flow Rate Oxygen Delivery Method Room Air Oxygen Flow Rate 0 Narrative Exam Narrative: Pleasant 67-year-old female, resting comfortably in her chair, no acute distress. Her is at bedside. Lumbar dressing demonstrates some scant drainage, there is surrounding ecchymosis, worse over the right proximal incision. No surrounding induration or kailey pus. Bilateral lower extremity: Motor functions are grossly intact, sensation is grossly intact to light touch, calves are soft and nontender to palpation. Objective Labs 12/25/22 06:25 PFSH Medical History Anxiety Asthma Cardiomyopathy Depression Diabetes Easy bruisability GERD (gastroesophageal reflux disease) HLD (hyperlipidemia) HTN (hypertension) Myocardial infarction (~2018) Spinal stenosis Vertigo Surgical History History of bilateral cataract extraction History of cardiac cath History of hysterectomy (~2002) History of total left knee replacement History of total right knee replacement Hx of bariatric surgery (~2005) Hx of hernia repair Hx of shoulder surgery Hx of tonsillectomy S/P epidural steroid injection Social History household members: spouse Smoking Status: Never smoker alcohol intake: current Discharge Assessment & Plan Assessment and Plan Assessment: -stable status post L4-5, L5-S1 TLIF Plan of Treatment: -mobilize. Weightbearing as tolerated with front wheel walker. No bending, lifting, twisting x6 weeks -continue with multimodal pain management -NE home today Discharge Plan Discharge Plan Patient Disposition: Home Discharge orders & Medications Prescriptions: New docusate sodium 100 mg Capsule 100 mg PO BID PRN (Reason: constipation) Qty: 30 0RF oxycodone 10 mg Tablet See Rx Instructions .ROUTE .COMPLEX PRN (Reason: Pain, Severe (7-10)) Qty: 42 0RF Rx Instructions: Take 1/2-1 tab every 3-4 hours as needed for moderate to severe postoperative pain acetaminophen [Tylenol Extra Strength] 500 mg tablet 500 mg PO Q4-6H MDD 3000mg per day PRN (Reason: pain) Qty: 90 0RF Rx Instructions: ok for OTC hydroxyzine pamoate [Vistaril] 25 mg capsule 25 mg PO QID PRN (Reason: Muscle spasms/pain/nausea) Qty: 60 0RF cyclobenzaprine 10 mg tablet See Rx Instructions .ROUTE .COMPLEX PRN (Reason: muscle spasm) Qty: 60 0RF Rx Instructions: Take 1/2-1 tablet twice a day as needed for muscle spasms Continued atorvastatin 40 mg Tablet 40 mg PO QPM trazodone 50 mg Tablet 100 mg PO BEDTIME metoprolol succinate 50 mg Tablet Extended Release 24 Hr 50 mg PO DAILY spironolactone 25 mg Tablet 12.5 mg PO DAILY pantoprazole 40 mg Tablet,Delayed Release (Dr/Ec) 40 mg PO DAILY pramipexole [Mirapex] 0.25 mg Tablet 0.75 mg PO BEDTIME montelukast 10 mg Tablet 10 mg PO DAILY escitalopram oxalate 20 mg Tablet 20 mg PO QPM bupropion HCl 150 mg Tablet Extended Release 24 Hr 150 mg PO QPM insulin glargine [Lantus Solostar U-100 Insulin] 100 unit/mL (3 mL) Insulin Pen 15 unit SUBCUT BEDTIME Jardiance 10 mg Tablet 10 mg PO QPM Entresto 49-51 mg Tablet 1 tab PO BID Discontinued acetaminophen 650 mg Tablet Extended Release 650 mg PO Q12H PRN (Reason: Pain) cyclobenzaprine 5 mg Tablet 10 mg PO BEDTIME Follow up/Referrals: Belinda Aguayo PA-C [Primary Care Provider] - Joshua Alva MD [Physician] - As previously scheduled (Follow up w/ Court Virk PA-C, on 01/08/2023 @ 10:00 am at [facility].) Diet/Activity/Treatments Diet: Diet as Tolerated Activity: No deep bending or twisting at the waist. No lifting more than 10 pounds. Cold/Heat Therapy: Heating pad to low back as needed for pain. Skin/Wound/Dressing Care Report to your healthcare provider any signs of infection, such as:: chills, fever, night sweats, unusual drainage and unusual redness Dressing: May shower; keep dressing as dry as possible. If dressing becomes wet or dirty inside, remove and replace with clean, dry gauze. No bathing or otherwise soaking incisions. Do not apply any creams, lotions, or ointments to incisions. Visit Report/Discharge Packet Instructions: DI for Transforaminal Lumbar Interbody Fusion, DI for Prescription Opioid Use Stand Alone Forms: Patient Portal/API, Stroke Signs & Symptoms, Surgery Discharge Discharge Data Primary Care Provider: Belinda Aguayo VTE Deep Vein Thrombosis/Pulmonary Embolism Present on Admission: No
== END 2022-12-26 12:55 | disposition home or self-care (01) | DRG 455 ==
PROVIDERS: Admitting Provider Orthopaedic Surgery Orthopaedic Surgery of the Spine; PCP Physician Assistant; Referring Provider Orthopaedic Surgery Orthopaedic Surgery of the Spine; Visit Provider Orthopaedic Surgery Orthopaedic Surgery of the Spine
PROC: 0SG00AJ Fusion of Lumbar Vertebral Joint with Interbody Fusion Device, Posterior Approach, Anterior Column, Open Approach (ICD-10-PCS; principal; 2022-12-24 07:45)
DX: M48.07 Spinal stenosis, lumbosacral region (principal); M48.061 Spinal stenosis, lumbar region without neurogenic claudication; M47.26 Other spondylosis with radiculopathy, lumbar region; E78.5 Hyperlipidemia, unspecified; I10 Essential (primary) hypertension; K21.9 Gastro-esophageal reflux disease without esophagitis; E11.9 Type 2 diabetes mellitus without complications; F32.A Depression, unspecified; Z79.84 Long term (current) use of oral hypoglycemic drugs; Z20.822 Contact with and (suspected) exposure to COVID-19; Z79.4 Long term (current) use of insulin
CPT/HCPCS: 36415; 72100; 76000; 82962; 85014; 85018; 87635; 97116; 97161; 97165; 97530; C9803; C1713; C9290; J0171; J0330; J0690; J1100; J1170; J1815; J2250; J2405; J2704; J3010

== ENCOUNTER → 2023-08-02 11:47 | Outpatient (CLI) | payer MEDICARE, OTHER, SELFPAY ==
[2022-12-24 13:55] VITALS: BMI 36.0
--- NOTE | 2023-08-02 | DI.MG.S_ITS ---
BILATERAL DIGITAL SCREENING MAMMOGRAM 3D/2D WITH CAD: 08/02/2023 CLINICAL: Routine screening. Family history of breast cancer. Comparison is made to exams dated: 06/26/2020 mammogram - [facility], 05/11/2019 mammogram, 03/09/2017 mammogram, and 12/05/2015 mammogram - outside location. There are scattered areas of fibroglandular density in both breasts (category b / 25%-50% glandular tissue). Current study was also evaluated with a Computer Aided Detection (CAD) system. No significant masses, calcifications, or other findings are seen in either breast. There has been no significant interval change. IMPRESSION: NEGATIVE There is no mammographic evidence of malignancy. A 1 year screening mammogram is recommended. Based on the Tyrer Cuzick model (a risk assessment model) the patient's lifetime risk is 8.0% and her 10 year risk is 5.1%. According to the ACR, ACS, and NCCN guidelines, an annual breast MRI exam along with mammogram is recommended if the patient's lifetime risk is 20% or greater. This exam was interpreted at Station ID: [id number]. NOTE: For mammograms, a report in lay terms will be sent to the patient. Approximately 15% of breast malignancies will not be visualized mammographically. In the management of a palpable breast mass, a negative mammogram must not discourage biopsy of a clinically suspicious lesion. Electronically Signed By: Teresita Almanza M.D., PH.D sonu/merissa:08/02/2023 19:24:07 letter sent: Normal Exam ACR BI-RADS Category 1: Negative [id number]
== END ==
PROVIDERS: PCP Physician Assistant; Referring Provider Physician Assistant; Visit Provider Physician Assistant
DX: Z12.31 Encounter for screening mammogram for malignant neoplasm of breast (principal); Z80.3 Family history of malignant neoplasm of breast
CPT/HCPCS: 77063; 77067

== ENCOUNTER → 2024-08-07 14:48 | Outpatient (CLI) | payer MEDICARE, OTHER, SELFPAY ==
[2022-12-24 13:55] VITALS: BMI 36.0
--- NOTE | 2024-08-07 14:49 | DI.MG.S_ITS ---
BILATERAL DIGITAL SCREENING MAMMOGRAM 3D/2D WITH CAD: 08/07/2024 CLINICAL: Routine screening. Family history of breast cancer. Comparison is made to exams dated: 08/02/2023 mammogram - [facility], 06/26/[address] mammogram - [facility], and 05/17/2019 ultrasound - outside location. There are scattered areas of fibroglandular density (category b / 25%-50% glandular tissue). Current study was also evaluated with a Computer Aided Detection (CAD) system. No significant masses, calcifications, or other findings are seen in either breast. There has been no significant interval change. IMPRESSION: NEGATIVE There is no mammographic evidence of malignancy. A 1 year screening mammogram is recommended. Based on the Tyrer Cuzick model (a risk assessment model) the patient's lifetime risk is 7.6% and her 10 year risk is 5.2%. According to the ACR, ACS, and NCCN guidelines, an annual breast MRI exam along with mammogram is recommended if the patient's lifetime risk is 20% or greater. This exam was interpreted at Station ID: [id number]. NOTE: For mammograms, a report in lay terms will be sent to the patient. Approximately 15% of breast malignancies will not be visualized mammographically. In the management of a palpable breast mass, a negative mammogram must not discourage biopsy of a clinically suspicious lesion. Electronically Signed By: Juancarlos allen/merissa:08/07/2024 17:49:12 letter sent: Normal Exam ACR BI-RADS Category 1: Negative
== END ==
PROVIDERS: PCP Physician Assistant; Referring Provider Registered Nurse; Visit Provider Registered Nurse
DX: Z12.31 Encounter for screening mammogram for malignant neoplasm of breast (principal); Z80.3 Family history of malignant neoplasm of breast
CPT/HCPCS: 77063; 77067